=== PATIENT | female | born 1995 | race Caucasian/White ===

== ENCOUNTER 2023-05-10 12:14 | Outpatient (REF) | payer SELFPAY ==
--- NOTE | 2023-05-10 11:50 | PAPFT_PTH ---
PATIENT: Araceli Zamudio [facility]: [facility] U#:[id number] AGE/SX: 27/F ROOM: RE05/10/[address]: EUGENIA MARTINEZ : 1995 BED: DIS: 05/10/2023 SPEC #: [id number] RECD: 05/11/23 18:14 STATUS: MINOO REQ #: [id number] TERA: 05/10/23 11:[address]: Eugenia Martinez DEPT: [facility] Cytology RECD BY: Sania Vanessa Tissues: 1 - CX/ENDOCX FOR PAP SMEARS Procedures: PAP THIN PREP/[facility] Screening HPV DNA PROBE Comments: [id number] (CHLAMYDIA/GC)
[2023-05-12 15:17] LABS: Chlamydia Result Negative (Negative); GC Result Negative (Negative)
== END 2023-05-10 12:15 | disposition home or self-care (01) ==
LOC: NCHCN 12:14
PROVIDERS: Visit Provider Nurse Practitioner Family
DX: Z11.3 Encounter for screening for infections with a predominantly sexual mode of transmission (principal); Z12.4 Encounter for screening for malignant neoplasm of cervix; Z11.51 Encounter for screening for human papillomavirus (HPV); R87.810 Cervical high risk human papillomavirus (HPV) DNA test positive; Z00.00 Encounter for general adult medical examination without abnormal findings
CPT/HCPCS: 87491; 87591; 88142; 87624

== ENCOUNTER 2024-11-08 15:56 | Outpatient (REF) | payer BC, SELFPAY ==
--- NOTE | 2024-11-08 15:50 | PAPFT_PTH ---
PATIENT: Araceli Zamudio LOC: [facility] U#:[id number] AGE/SX: 29/F ROOM: RE11/08/[address]: Lara Copeland : 1995 BED: DIS: 11/08/2024 SPEC #: [id number] RECD: 11/11/24 12:39 STATUS: MINOO REQ #: [id number] TERA: 11/08/24 15:[address]: Lara Copeland DEPT: [facility] Cytology RECD BY: Ashwini Reeves ENTERED: 11/11/24 12:40 SP TYPE: PAPFT OTHR DR: Unknown,Unknown Tissues: 1 - CX/ENDOCX FOR PAP SMEARS Procedures: PAP THIN PREP/[facility] Screening HPV DNA PROBE Comments: [id number] (HPV 16 & 18/45)
== END 2024-11-08 15:57 | disposition home or self-care (01) ==
LOC: NCHCN 15:56
PROVIDERS: Visit Provider Nurse Practitioner Family
DX: Z01.419 Encounter for gynecological examination (general) (routine) without abnormal findings (principal); Z87.42 Personal history of other diseases of the female genital tract
CPT/HCPCS: 88142; 87624

== ENCOUNTER 2025-08-04 03:32 | Outpatient (CLI) | payer BC, SELFPAY ==
[2025-08-04 11:45] LABS: Abs Immature Grans 0.04 10^3/uL (0.0-0.06); HCT 36.9 % (36.0-46.0); HGB 12.7 g/dL (11.2-15.7); Immature Grans % 0.4 %; MCH 29.6 pg (27.0-33.0); MCHC 34.4 % (32.0-36.0); MCV 86 fL (80-95); MPV 8.6 fL (8.0-11.0); Platelet Count 238 10^3/uL (130-400); RBC 4.29 10^6/uL (3.93-5.22); RDW 11.8 % (11.7-14.6); RDW-SD 35.8 fL; WBC 9.24 10^3/uL (4.4-10.8)
[2025-08-05 00:53] LABS: Hepatitis C Ab w Rflx HCV PCR Negative (Negative)
[2025-08-05 00:56] LABS: HIV-1/2 Ag & Ab Screen Negative (Negative)
[2025-08-05 10:38] LABS: Rubella IgG Ab (UVM) Positive (See Note)
== END 2025-08-04 03:33 | disposition home or self-care (01) ==
LOC: LBO 03:32
PROVIDERS: PCP Advanced Practice Midwife; Visit Provider Advanced Practice Midwife
DX: Z34.91 Encounter for supervision of normal pregnancy, unspecified, first trimester (principal); Z3A.11 11 weeks gestation of pregnancy
CPT/HCPCS: 36415; 86787; 86803; 86850; 86900; 86901; 87340; 87389; 85025; 86762

== ENCOUNTER 2025-08-04 11:22 | Outpatient (REF) | payer BC, SELFPAY ==
[2025-08-04 14:25] LABS: Cannabinoids THC Negative (Negative)
[2025-08-05 11:16] LABS: Chlamydia Result Negative (Negative); GC Result Negative (Negative)
== END 2025-08-04 11:23 | disposition home or self-care (01) ==
LOC: LBN 11:22
PROVIDERS: PCP Advanced Practice Midwife; Visit Provider Advanced Practice Midwife
DX: Z34.91 Encounter for supervision of normal pregnancy, unspecified, first trimester (principal); O09.811 Supervision of pregnancy resulting from assisted reproductive technology, first trimester; Z3A.11 11 weeks gestation of pregnancy
CPT/HCPCS: 80307; 87491; 87591; 87086